=== PATIENT | male | born 1950 | race Caucasian/White ===

== ENCOUNTER 2017-06-18 09:20 | Observation (INO) | payer MEDICARE ==
--- NOTE | 2017-06-08 17:52 | HP ---
CC: [facility]* HISTORY AND PHYSICAL: DATE OF PLANNED ADMISSION AND SURGERY: 06/18/17 HISTORY OF PRESENT ILLNESS: Mr. Reaves is a 67-year-old white male, who is admitted with multiple bladder calculi, prostate enlargement and bladder outlet obstruction for cystolitholapaxy and transurethral resection of the prostate. I have been following Mr. Reaves for the last 2 years because of symptoms of bladder outlet obstruction consisting of day frequency about every 90 minutes, urgency, nocturia twice, associated with slow stream and feeling of incomplete bladder emptying. One month ago, he passed several bladder calculi measuring 1 cm each. Office cystoscopy showed a large prostate with a prominent obstructing median lobe. The bladder showed heavy trabeculations with multiple cellules. There were 5 bladder calculi seen, each measuring about 1 cm with gravel at the base of the bladder. There were no suspicious bladder lesions seen. Urodynamic studies showed a voiding detrusor pressure of 60 cm H2O, a uroflowmetry of peak flow of 5 cc/sec and a postvoid residual of about 50 cc. Because of the above history and findings, the presence of the multiple bladder calculi, the above operation was advised and accepted. PAST MEDICAL HISTORY AND SYSTEM REVIEW: He is hypertensive, well controlled on lisinopril 5 mg daily. He is diabetic on metformin 1 g daily and on Januvia 50 mg daily He has hyperlipidemia, on Lipitor 20 mg daily. He has been maintained on tamsulosin 0.8 mg daily. ALLERGIES: The patient denies any allergies to medications. He denies any cardiac or pulmonary diseases or symptoms. FAMILY HISTORY: Negative for prostate carcinoma. His PSA last month was normal at 0.9. PHYSICAL EXAMINATION GENERAL: Moderately overnight, otherwise healthy-looking white male. VITAL SIGNS: Blood pressure 130/90, pulse of 78. HEART: Regular and rhythmic. No murmurs. LUNGS: Clear. ABDOMEN: Soft. No masses, no tenderness, and no CVA tenderness. EXTERNAL GENITALIA: He is circumcised. There are no penile lesions. Normal testes and no hernias. RECTAL: Shows an enlarged but nonsuspicious prostate. IMPRESSION: Bladder outlet obstruction due to prostate enlargement with multiple bladder calculi. PLAN: Plan is for cystolitholapaxy and transurethral resection of the prostate. I discussed the above operation in detail with the patient. Some of the potential complications including infection, hematuria, small incidence of urethral stricture and a small incidence of urinary incontinence. All of his questions were answered. [id number]/[facility] #: [id number] PAU
[~2017-06-18 09:20] MED LIST: Buffered Lidocaine 0.9% SYRIN* 5 ML/SYR SYRINGE INTRADERM ONE; NS 0.9% 1000 ML* 1,000 ML IV SCH
[2017-06-18] MEDS ORDERED: cefTRIAXone(*) 2 GM ADDV.VIAL IVPB ONE (09:25)
[2017-06-18] MEDS ORDERED: Buffered Lidocaine 0.9% SYRIN* 5 ML/SYR SYRINGE ONE (09:25)
[2017-06-18] MEDS ORDERED: Midazolam* 1 MG/ML 2 ML VIAL (2 MG) ONE (09:52)
[2017-06-18] MEDS ORDERED: fentaNYL* 50 MCG/ML 2 ML VIAL (100 MCG VIAL) ONE (09:52)
[2017-06-18] MEDS ORDERED: DiMENhydriNATE IV* 50 MG/ML VIAL IV PUSH PRN (11:57)
[2017-06-18] MEDS ORDERED: fentaNYL* 50 MCG/ML 2 ML VIAL (100 MCG VIAL) IV PRN (11:57)
[2017-06-18] MEDS ORDERED: Ondansetron INJ* 2 MG/ML VIAL IV PRN (11:59)
[2017-06-18] MEDS ORDERED: PROCHLORPERAZINE INJ 5 MG/ML 2 ML VIAL IV PRN (11:59)
[2017-06-18] MEDS ORDERED: HYDROcodone/ACETAMIN 5-325 MG* 1 TAB PO PRN ×2 (11:59)
[2017-06-18] MEDS ORDERED: Nalbuphine* 20 MG/ML 1 ML VIAL IV PRN (11:59)
[2017-06-18] MEDS ORDERED: Naloxone* 0.4 MG/ML 1 ML VIAL IV PRN (11:59)
[2017-06-18] MEDS ORDERED: diPHENhydraMINE IV* 50 MG/ML 1 ml VIAL (BENADRYL) IV PRN (11:59)
[2017-06-18] MEDS: Acetaminophen TAB* 325 MG PO SCH ×3 (14:56→20:41)
[2017-06-18] MEDS ORDERED: oxyCODONE/Acetamin 5/325 MG* TAB PO PRN ×2 (15:35→15:36)
[2017-06-18] MEDS ORDERED: Oxybutynin TAB* 5 MG PO PRN (15:36)
[2017-06-18] MEDS: metFORMIN* 1,000 MG TAB PO SCH (20:43)
[2017-06-18] MEDS: Lidocaine 2% JELLY* 6 ML JELLY TOPICAL PRN (22:13)
[2017-06-19] MEDS: Acetaminophen TAB* 325 MG PO SCH (00:08)
--- NOTE | 2017-06-19 02:12 | OP ---
CC: [facility]* OPERATIVE REPORT: DATE OF OPERATION: 06/18/17 - Inpatient, room SSU 349-01 DATE OF : 48 SURGEON: Eulalio Montalvo MD ANESTHESIOLOGIST: Fransico Rojas MD ANESTHESIA: Spinal. PRE-OP DIAGNOSES: 1. Benign prostatic hyperplasia. 2. Bladder outlet obstruction. 3. Multiple bladder calculi. POST-OP DIAGNOSES: 1. Benign prostatic hyperplasia. 2. Bladder outlet obstruction. 3. Multiple bladder calculi. OPERATIVE PROCEDURE: 1. Cystoscopy. 2. Cystolitholapaxy. 3. Transurethral resection of the prostate. INDICATION FOR PROCEDURE: Mr. Reaves is a 67-year-old male who had a long history of bladder outlet obstruction and who has been maintained on tamsulosin. He was worked up with a cystoscopy which showed a large prostate and an obstructing median lobe. Multiple bladder calculi were noted. Urodynamic studies showed a high voiding detrusor pressure. Because of the above history and findings, the above operation was advised and accepted. PATHOLOGY AT CYSTOSCOPY: The penile and bulbar urethrae looked normal. The prostatic urethra measured 3 cm in length and there was marked degree of obstruction mostly by a large median lobe and an elevated fibrotic bladder neck. There was also prominence of the lateral lobes of the prostate. Examination of the bladder showed diffuse heavy trabeculations. There were no suspicious bladder lesions seen. There were 5 bladder calculi each measuring about 1 to 1.5 cm in diameter. There were also multiple small bladder calculi seen. No suspicious bladder lesions noted. No diverticuli. The prostate adenoma was rather fibrotic and not vascular. There were multiple prostate calculi noted during resection. The verumontanum was not well developed. DESCRIPTION OF PROCEDURE: After successful spinal anesthesia, the patient was placed in the lithotomy position, and was prepped and draped for cystoscopy. Cystoscopy was performed. The findings in the prostatic urethra and in the bladder were noted. The stone crushing forceps was then introduced inside the bladder. The bladder was distended with irrigation fluid. Each bladder calculus was grabbed with the stone crushing forceps, brought into the middle of the bladder lumen and the stones were crushed into multiple pieces. Care was taken not to cause any damage to the bladder wall. The bladder was then irrigated and all the stone fragments were evacuated. Inspection showed no residual calculi and no bladder wall injury. The resectoscope was then introduced inside the bladder. Mannitol, sorbitol solution were used for irrigation and the inflow and outflow were adjusted to avoid overdistention of the bladder. The ureteral orifices and the trigone were visualized. The median lobe and the fibrotic posterior bladder neck were then resected being careful to avoid injuring the trigone or the orifices. The resection of the floor of the prostatic urethra was then carried until the level of the verumontanum. The resection was completed between 5 and 8 o'clock allowing the visualization of the bladder neck from the veru. The left lateral lobe was then resected starting at 5 o'clock and proceeding anteriorly. The right lobe was resected next. The roof and the apical tissues were resected last. The limits of the resection were the bladder neck proximally, the verumontanum distally, and the capsule circumferentially. At the completion of the resection, the prostatic urethra was wide open. There was no residual obstructing adenomatous prostate tissue. There were no deep cuts into the capsule and no open sinuses. The external sphincter, the verumontanum, the capsule, the bladder neck, and the trigone were all intact. The ureteral orifices were well visualized and were intact. After irrigating all the prostate chips and making sure there was very good hemostasis, the resectoscope was removed and a size 22-[place] Polanco catheter was passed inside the bladder and the balloon inflated with 30 cc of water. The catheter was placed under gentle traction and taped to the right thigh of the patient. Irrigation yielded clear returns. The patient tolerated the procedure well and left the operating room in good condition. The blood loss was negligible. The specimens were bladder calculi and prostate chips. [id number]/[facility] #: [id number] [facility]
[2017-06-19] MEDS: Lidocaine 2% JELLY* 6 ML JELLY TOPICAL PRN (04:30)
[2017-06-19] MEDS ORDERED: cefTRIAXone VIAL(*) 1,000 MG in NS 0.9% 50 ML* 50 ML IVPB ONE (06:00)
[2017-06-19 07:56] VITALS: BP 126/80
[2017-06-19] MEDS: metFORMIN* 1,000 MG TAB PO SCH (08:57)
[2017-06-19] MEDS ORDERED: Lisinopril TAB* 5 MG PO SCH (09:00)
[2017-06-19] MEDS ORDERED: CMC:SitaGLIPtin (NF) 25 MG TAB PO SCH (09:00)
[2017-06-19] MEDS ORDERED: Atorvastatin* 20 MG TAB PO SCH (09:00)
--- NOTE | 2017-06-19 09:42 | DS ---
DISCHARGE SUMMARY: DATE OF ADMISSION: 06/18/17 DATE OF DISCHARGE: 06/19/17 FINAL DIAGNOSES: 1. Benign prostatic hyperplasia. 2. Bladder outlet obstruction due to above. 3. Multiple bladder calculi. 4. Type 2 diabetes mellitus. 5. Hypertension. OPERATIONS: 1. Cystolitholapaxy. 2. Transurethral resection of the prostate on 06/18/17. HISTORY: Mr. Reaves is a 67-year-old male with long history of bladder outlet obstruction and it was noted on workup to have an enlarged obstructing prostate and multiple bladder calculi. Urodynamic studies confirmed a high voiding detrusor pressure. The patient has been maintained on tamsulosin 0.8 mg daily with only partial improvement in his voiding. Because of the above history and presence of the bladder calculi and prostate enlargement, the above operation was advised and accepted. PAST MEDICAL HISTORY AND SYSTEM REVIEW: Type 2 diabetes mellitus, maintained on metformin 1 g daily and Januvia 50 mg daily. He is hypertensive, on lisinopril 5 mg daily. He has hyperlipidemia, on Lipitor 20 mg daily. ALLERGIES: He denies any allergies to medications. LABORATORY DATA: Preoperative lab work was all within normal. His PSA was normal at 0.9. PHYSICAL EXAMINATION: Preoperative physical exam was also within normal. Rectal showed an enlarged, but nonsuspicious prostate. COURSE IN HOSPITAL: Patient was admitted on the morning of his surgery. He underwent an uncomplicated cystolitholapaxy and transurethral resection of the prostate under spinal anesthesia. Five bladder calculi, each measuring about 1 to 1.5 cm in size were crushed and removed. The TURP was uncomplicated. Patient did very well postoperatively except for bladder spasms, which were controlled with oxybutynin. He was discharged the next morning on a Polanco catheter. The plan is to see the patient in the office in 5 days for catheter removal. Instructions were given for followup care. [id number]/[facility] #: [id number] MTDD
== END 2017-06-19 10:50 | disposition home or self-care (01) ==
LOC: OR 09:20 → SSU 14:43
PROVIDERS: ADMIT Urology; ATTEND Urology
PROC: 0TJB8ZZ Inspection of Bladder, Via Natural or Artificial Opening Endoscopic (ICD-10-PCS; 2017-06-18)
PROC: 0TCB8ZZ Extirpation of Matter from Bladder, Via Natural or Artificial Opening Endoscopic (ICD-10-PCS; 2017-06-18)
PROC: 0VT08ZZ Resection of Prostate, Via Natural or Artificial Opening Endoscopic (ICD-10-PCS; principal; 2017-06-18 11:00)
DX: N40.1 Benign prostatic hyperplasia with lower urinary tract symptoms (principal); N13.8 Other obstructive and reflux uropathy; N21.0 Calculus in bladder; E11.9 Type 2 diabetes mellitus without complications; I10 Essential (primary) hypertension
CPT/HCPCS: 82365; 88300; 88305; 96365; 96366; A9270-GY; G0378; J0696; J2250; J3010

== ENCOUNTER 2021-07-30 06:10 | Observation (INO) ==
[~2021-07-30 06:10] MED LIST changes: -Buffered Lidocaine 0.9% SYRIN* 5 ML/SYR SYRINGE INTRADERM ONE; +Buffered Lidocaine 1% SYRIN 1 ml INTRADERM ONE; +Lactated Ringers 1000 ml BAG 1,000 ML IV SCH; -NS 0.9% 1000 ML* 1,000 ML IV SCH
[2021-07-30] MEDS ORDERED: Heparin 5000 UNITS/ML 1 mL VIAL ONE ×2 (07:08→10:40)
[2021-07-30] MEDS ORDERED: Lidocaine 1% w EPI 1:100,000 MDV 20 ML VIAL ONE (07:08)
[2021-07-30] MEDS ORDERED: Lidocaine 1% VIAL 10 MG/ML VIAL ONE (07:09)
[2021-07-30] MEDS ORDERED: Bupivacaine 0.25% SDV 30 ML ONE (07:09)
[2021-07-30] MEDS ORDERED: Heparin 2 UNITS/ML 1000 mls 1,000 ML IV ONE (07:09)
[2021-07-30] MEDS ORDERED: Labetalol IV 5 MG/ML 20 ml VIAL IV PUSH ONE (07:57)
[2021-07-30] MEDS ORDERED: Labetalol IV 5 MG/ML 20 ml VIAL ONE ×2 (08:01→08:14)
[2021-07-30] MEDS ORDERED: Propofol 10 MG/ML 20 ML BTL ONE ×3 (08:36→11:28)
[2021-07-30] MEDS ORDERED: Lidocaine 2% PF 5 ML VIAL ONE (08:36)
[2021-07-30] MEDS ORDERED: Midazolam 2 mg/2 ml VIAL 1 mg/ml 2 ml VIAL (2 mg) ONE (08:41)
[2021-07-30] MEDS ORDERED: ceFAZolin VIAL VIAL ONE (09:22)
[2021-07-30] MEDS ORDERED: Phenylephrine 40 mcg/mL 10mL (400mcg) SYRINGE ONE (09:35)
[2021-07-30] MEDS ORDERED: Phenylephrine IV 10 MG/ML 1 ml VIAL ONE (09:38)
[2021-07-30] MEDS ORDERED: Bupivacaine 0.5% SDV PF 30ML VIAL ONE (09:57)
[2021-07-30] MEDS ORDERED: fentaNYL 100 mcg/2 ml 50 MCG/ML VIAL IV PRN (13:06)
[2021-07-30] MEDS ORDERED: Naloxone 0.4 mg VIAL 0.4 mg/ml 1 ml VIAL IV PRN (13:06)
[2021-07-30] MEDS ORDERED: DiMENhydriNATE IV 50 mg/ml 1 ml VIAL IV PUSH PRN (13:06)
[2021-07-30] MEDS ORDERED: oxyCODONE/Acetamin 5/325 mg TAB PO PRN ×2 (13:06→15:54)
[2021-07-30] MEDS ORDERED: hydrALAZINE 20 mg/ml 1 ML Vial IV IV SLOW PU ONE ×4 (13:08→14:29)
[2021-07-30] MEDS ORDERED: hydrALAZINE 20 mg/ml 1 ML Vial IV ONE (13:10)
[2021-07-30] MEDS ORDERED: Dextrose 50% Syringe 50 ml 25 GM/50 ML SYRINGE IV PUSH PRN (16:15)
[2021-07-30] MEDS: Enoxaparin 40 MG/0.4 ML SYR SUBCUT SCH (17:45)
[2021-07-31 06:46] LABS: ABS Eosinophils 0.1 10^3/ul (0-0.6); ABS Lymphocytes 1.1 10^3/ul (1.0-4.8); ABS Monocytes 0.9 10^3/ul (0-0.8); Eosinophil % 0.9 %; Hematocrit 40 % (42-52); Hemoglobin 13.6 g/dL (14.0-18.0); Lymphocyte % 13.6 %; Mean Corpuscular HGB Conc 34 g/dL (31-36); Mean Corpuscular Hemoglobin 32 pg (27-31); Mean Corpuscular Volume 94 fL (80-94); Mean Platelet Volume 9.5 fL (7.4-10.4); Platelet Count 197 10^3/uL (150-450); Red Blood Count 4.26 10^6 /uL (4.18-5.48); Red Cell Distribution Width 13 % (10-15)
[2021-07-31 07:00] LABS: Calcium 9.1 mg/dL (8.6-10.3); Potassium 3.9 mmol/L (3.5-5.0)
[2021-07-31] MEDS: Enoxaparin 40 MG/0.4 ML SYR SUBCUT SCH (08:05)
[2021-07-31 08:32] VITALS: BP 137/88
[2021-07-31] MEDS ORDERED: Aspirin EC 81 mg TAB.EC (enteric coated) PO SCH (09:00)
[2021-07-31] MEDS ORDERED: [UNRECOGNIZED DRUG - OTHER] PO SCH (09:00)
== END 2021-07-31 10:55 | disposition home or self-care (01) ==
LOC: OR 06:10 → SSU 06:10
PROVIDERS: ADMIT Internal Medicine; ATTEND Surgery
PROC: O.GEAVF (2021-07-30 07:30)